=== PATIENT | male | born 1955 | race Caucasian/White ===

== ENCOUNTER 2018-01-29 08:06 | Day surgery (SDC) | payer BC ==
[2018-01-27 11:45] VITALS: BMI 24.3
[2018-01-29] MEDS ORDERED: BUPIVACAINE HCL/PF 2.5 MG/ML - 30 ML VIAL IJ ONE (09:48)
[2018-01-29] MEDS ORDERED: PROPOFOL 20 ML ONE (10:02)
[2018-01-29] MEDS ORDERED: DEXAMETHASONE SOD PHOSPHATE 4 MG/1 ML VIAL ONE (10:03)
[2018-01-29] MEDS ORDERED: ceFAZolin SODIUM 1 GM VIAL ONE (10:03)
[2018-01-29] MEDS ORDERED: ONDANSETRON 4 MG/2 ML VIAL ONE (10:03)
[2018-01-29] MEDS ORDERED: LIDOCAINE HCL/PF 2% SDV 5ML VIAL ONE (10:03)
[2018-01-29] MEDS ORDERED: KETOROLAC TROMETHAMINE 30 MG/1 ML VIAL ONE (10:03)
[2018-01-29] MEDS ORDERED: BUPIVACAINE HCL/PF 0.25% (2.5MG/ML) 10 ML VIAL IJ ONE (10:29)
[2018-01-29] MEDS ORDERED: oxyCODONE HCL 5 MG TABLET PO PRN ×2 (11:04)
[2018-01-29] MEDS ORDERED: ONDANSETRON 4 MG/2 ML VIAL IVPUSH PRN (11:04)
[2018-01-29] MEDS ORDERED: PROMETHAZINE HCL 25 MG/1 ML VIAL IVPUSH PRN (11:04)
[2018-01-29] MEDS ORDERED: LACTATED RINGERS SOLUTION 1,000 ML IV SCH (11:15)
[2018-01-29 12:41] VITALS: TEMP 97.5
[2018-01-29 13:20] VITALS: BP 120/74; PULSE 63
--- NOTE | 2018-02-01 15:14 | OP ---
DATE OF OPERATION: 01/29/2018 SURGEON: Mark Alexis MD [employer] SUPERVISOR: LONNIE Simon PREOPERATIVE DIAGNOSES: 1. Right knee medial and lateral meniscal tear. 2. Right knee cartilage injury. 3. Right knee synovitis. POSTOPERATIVE DIAGNOSIS: 1. Right knee medial and lateral meniscal tear. 2. Right knee cartilage injury. 3. Right knee synovitis. PROCEDURE: 1. Right knee arthroscopy with partial meniscectomy, medial and lateral meniscus. 2. Right knee arthroscopy with chondroplasty and abrasion arthroplasty. 3. Right knee arthroscopy with synovectomy. CPT CODES: 28296 FINDINGS: 1. Medial meniscus anterior horn tear. 2. Lateral meniscus anterior horn tear. 3. Synovitis notch area. 4. Large ligament with extrusion into the lateral joint line and associated tearing of the anterior horns. 5. . 6. ACL and PCL tibial plateau. 7. cartilage injury patellofemoral trochlea adhesions. PROCEDURE: Informed consent was obtained. The patient came to the operating room, where the lower extremity was prepped and draped in a sterile fashion. A tourniquet was placed on the upper thigh, but not inflated. Using standard arthroscopic technique, a lateral incision and portal was made to allow for introduction of the camera into the suprapatellar bursa. This was then taken to the medial joint line, where under direct visualization, a medial incision and portal was made. Excessive synovium noted in the medial, lateral and patellofemoral and notch area was removed by an upbiter, shaver and Bovie cautery. This was found to bring in inflammatory tissue into the joint surface, a source of pain and dysfunction. Probing of the medial and lateral meniscus found tears, as described in the findings. These were removed with the upbiter and shaver and taken back to a stable rim. Grade 2 to 3 degenerative changes were treated with a chondroplasty, removing all flaking surfaces with low-setting Bovie along the periphery to prevent further flaking. Grade 4 changes, as noted, were treated with an abrasoplasty, creating a bleeding surface at the bone/cartilage interface. Aggressive debridement with shaver/mirela created bleeding surface. Micro fracture also done when indicated in findings. All areas of the knee were once again reexamined. The knee was then drained and a single suture was placed in all portals. A sterile dressing was placed and the patient was transferred to the recovery room without complication. MARK ALEXIS M.D. [id number]
== END 2018-01-29 13:21 | disposition home or self-care (01) ==
LOC: FASU 08:06
PROVIDERS: ATTEND Orthopaedic Surgery
PROC: 0SBC4ZZ Excision of Right Knee Joint, Percutaneous Endoscopic Approach (ICD-10-PCS; 2018-01-29)
PROC: 0SBC4ZZ Excision of Right Knee Joint, Percutaneous Endoscopic Approach (ICD-10-PCS; 2018-01-29)
PROC: 0SBC4ZZ Excision of Right Knee Joint, Percutaneous Endoscopic Approach (ICD-10-PCS; principal; 2018-01-29 10:28)
DX: S83.241A Other tear of medial meniscus, current injury, right knee, initial encounter (principal); S83.281A Other tear of lateral meniscus, current injury, right knee, initial encounter; S83.8X1A Sprain of other specified parts of right knee, initial encounter; M65.861 Other synovitis and tenosynovitis, right lower leg; X58.XXXA Exposure to other specified factors, initial encounter; Y93.9 Activity, unspecified; Y92.9 Unspecified place or not applicable
CPT/HCPCS: 94760

== ENCOUNTER 2018-06-11 06:58 | Emergency (ER) | payer BC, OTHER ==
[2018-06-11 07:12] VITALS: TEMP 98.4; BMI 24.3
--- NOTE | 2018-06-11 07:27 | PDOC ---
History of Present Illness - General Chief Complaint: Chest Pain Stated Complaint: CHEST PAIN Time Seen by Provider: 06/11/18 07:23 History Source: Patient Exam Limitations: No Limitations - History of Present Illness Initial Comments: 06/11/18 07:29 62y M pmhx LBBB, chf (ef 40%), PE (2007, related to surgery on a/c for 6 months then d/cd) presents with chest pain that woke him out of sleep at 5:30. The chest pain is sharp, loalized to the left side, nonradiating, 4/10 and lasted under 1 min before resolving. The pt went back to sleep and it happened again, he took his BP and noticed it was elevated to 170s sbp and came for evaluation. PT states he is ccurrently pain free. Denies any prior history of pain. He has been asymptomatic until today. Pt doesnt run anymore but states he walks to keep in shape and to get his heart rate up. No recent fever/chills, n/v, cough, bah, pleurisy, not positional, palps, lightheadedness, cough, recent travel. +social etoh Cardiology: Tal Martins PMD: Pradip Past History - Past Medical History Allergies/Adverse Reactions: Allergies Allergy/AdvReac Type Severity Reaction Status Date / Time No Known Allergies Allergy Unverified 01/18/13 12:46 Home Medications: Ambulatory Orders Aspirin [Aspir 81] 81 mg PO AM 01/18/13 Icosapent Ethyl [Vascepa] 1 gm PO QID capsule 02/15/16 Lisinopril [Prinivil -] 40 mg PO DAILY 01/27/18 Testosterone Enanthate 0.5 ml IM WEEKLY 01/27/18 Carvedilol [Coreg -] 12.5 mg PO BID 06/11/18 Anemia: Yes (THALASEMIA) Asthma: No Cancer: No Cardiac Disorders: Yes (LEFT BBB, CARDIOMYOPATHY) CVA: No COPD: No CHF: No Dementia: No Diabetes: No GI Disorders: No Disorders: No HTN: Yes (DX 2015) Hypercholesterolemia: No Liver Disease: No Seizures: Yes (1986- GRAN MAL SEIZURE DURING SLEEP) Thyroid Disease: No - Surgical History Abdominal Surgery: Yes (OPEN A/P) Appendectomy: Yes (OPEN A/P- 1986) Cardiac Surgery: No Cholecystectomy: No Lung Surgery: No Neurologic Surgery: No Orthopedic Surgery: Yes (LEFT HIP RESURFACING-2005) - Suicide/Smoking/Psychosocial Hx Smoking History: Never smoked Have you smoked in the past 12 months: No Hx Alcohol Use: Yes (SOCIALLY) Drug/Substance Use Hx: No Substance Use Type: Alcohol Hx Substance Use Treatment: No Cardiac Specific PMH - Complaint Specific PMHX Pacemaker: No Review of Systems - Review of Systems Able to Perform ROS?: Yes Comments:: 06/11/18 08:01 Constitutional - no reported Fever, Chills, HEENT: no reported vision changes, sore throat Respiratory: no reported cough, sob, hemoptysis Cardiac: + chest pain, no reported palpitations, light headedness, leg swelling Abd/GI: no reported abd pain, nausea, vomiting, blood per rectum, melena, diarrhea : no reported dysuria, frequency, discharge Musculskelatal - no reported back pain, joint swelling skin - no reported bruising, erythema, rash neurological: no reported headache, numbness, focal weakness, tingling, ataxia, hematologic: no reported easy bruising, easy bleeding *Physical Exam - Vital Signs Last Vital Signs Temp Pulse Resp BP Pulse Ox 98.4 F 85 16 145/85 100 06/11/18 07:05 06/11/18 10:47 06/11/18 07:05 06/11/18 10:47 06/11/18 10:47 - Physical Exam Comments: 06/11/18 08:01 GENERAL: The patient is awake, alert, and fully oriented, Nontoxic - in no acute distress. HEAD: Normocephalic, atraumatic. EYES: extraocular movements intact, sclera anicteric, conjunctiva clear. ENT: Normal voice, Moist mucous membranes. NECK: Normal range of motion, supple LUNGS: Breath sounds equal, clear to auscultation bilaterally. No wheezes, no rhonchi, no rales. HEART: Regular rate and rhythm, normal S1 and S2 without murmur, rub or gallop. ABDOMEN: Soft, nontender, normoactive bowel sounds. No guarding, no rebound. . No CVA tenderness EXTREMITIES: Normal range of motion, no edema. NEUROLOGICAL: No facial assymetry, Normal speech, PSYCH: Normal mood, normal affect. SKIN: Warm, Dry, normal turgor, Heart Score/ECG Review - ECG Impressions Comment:: 06/11/18 08:03 Twelve-lead EKG was performed and reviewed by me. There is normal sinus rhythm with a rate of 53 The axis is normal. QRS interval of 118 LVH no prior ekg ofor comparison ED Treatment Course - LABORATORY CBC & Chemistry Diagram: 06/11/18 08:10 06/11/18 08:10 - ADDITIONAL ORDERS Additional order review: Laboratory Results 06/11/18 06/11/18 06/11/18 11:10 11:10 08:10 PT with INR 12.2 INR 1.09 Sodium Potassium Chloride Carbon Dioxide Anion Gap BUN Creatinine Creat Clearance w eGFR Random Glucose Calcium Total Bilirubin AST ALT Alkaline Phosphatase Creatine Kinase 83 Troponin I < 0.03 Total Protein Albumin 06/11/18 06/11/18 08:10 08:10 PT with INR INR Sodium 134 L Potassium 4.0 Chloride 103 Carbon Dioxide 27 Anion Gap 4 L BUN 16 Creatinine 0.7 Creat Clearance w eGFR > 60 Random Glucose 99 Calcium 9.2 Total Bilirubin 1.2 H AST 26 ALT 24 Alkaline Phosphatase 39 Creatine Kinase 87 Troponin I < 0.03 Total Protein 6.2 L Albumin 4.0 06/11/18 08:10 RBC 6.33 H MCV 65.2 L MCHC 32.2 RDW 14.7 MPV 8.1 Neutrophils % No Result Required. Lymphocytes % No Result Required. - RADIOLOGY Radiology Studies Ordered: Category Date Time Status CHEST PA & LAT [RAD] Stat Radiology 06/11/18 07:55 Completed - Medications Given in the ED: ED Medications Discontinued Medications Generic Name Dose Route Start Last Admin Trade Name Freq PRN Reason Stop Dose Admin Aspirin 162 mg 06/11/18 07:55 06/11/18 08:27 Asa - PO 06/11/18 07:56 162 mg ONCE ONE Administration Medical Decision Making - Medical Decision Making 06/11/18 08:03 62-year-old gentleman history of hypertension, cardiomyopathy with EF of 40%, history of provoked PE currently off before meals presenting with 2 episodes of brief sharp chest pain waking him up from sleep without associated diaphoresis, shortness of breath, dyspnea on exertion. Differential for the patient's symptoms includes possible ACS, pneumothorax, Considered possible PE however his symptoms not consistent. There also is atypical of ACS Will obtain blood work, troponins, EKG, chest x-ray aspirin We'll discuss with his environmental health safety engineer regarding disposition 06/11/18 12:09 Patient's lab work is unremarkable, the patient's asymptomatic no events on quality assurance monitor chassis. Attempted to call the patient's environmental health safety engineer, attended reach patient at the office was told that not in office today and was given her cell ([phone]) but I get a ringtone but goes to 'unalbe to complete call' after multiple tries. Attempted other numbers without any answers ([phone]). will discuss with dr. Moseley regarding disposition - anticipate outpatient fu with cardiology 06/11/18 12:[address] Moseley agree with our management and will fu with him as outpatient if 2ndtrop neg. 06/11/18 12:49 trop neg x 2 pt asypptomatic pt has cards appointment on 06/16 will dc with pmd and cardiology fu return precautions were discussed I discussed the physical exam findings, ancillary test results and final diagnoses with the patient. I answered all of the patient's questions. The patient was satisfied with the care received and felt comfortable with the discharge plan and treatment plan. The patient will call their primary care physician within 24 hours to arrange follow-up and will return to the Emergency Department with any new, persistent or worsening symptoms. *DC/Admit/Observation/Transfer Diagnosis at time of Disposition: Atypical chest pain - Discharge Dispostion Disposition: HOME Condition at time of disposition: Improved Decision to Admit order: No - Referrals Referrals: See Moseley MD [Primary Care Provider] - Tal Martins MD [Staff Physician] - - Patient Instructions Printed Discharge Instructions: DI for Atypical Chest Pain Additional Instructions: Return to the emergency department immediately with ANY new, persistent or worsening symptoms clearing any chest pain, shortness of breath, decreased exercise tolerance or other complaints. You MUST call and follow up with your doctor and environmental health safety engineer next week for further evaluation of your symptoms. Results were discussed with you. Please make sure your doctor reviews the results of your emergency evaluation. If you had any xrays during your visit, it was read preliminarily by myself, a Radiologist will review it and if there are any additional findings we will call you. - Post Discharge Activity
[2018-06-11] MEDS ORDERED: ASPIRIN 81 MG CHEWABLE TABLETS PO ONE (07:55)
[2018-06-11] MEDS ORDERED: ASPIRIN 81 MG CHEWABLE TABLETS ONE (08:32)
[2018-06-11 08:34] LABS: INR 1.09 (0.82-1.09); PROTHROMBIN TIME (PATIENT) 12.2 SEC (10.2-13.0)
[2018-06-11 08:39] LABS: HEMATOCRIT 41.3 % (35.4-49); HEMOGLOBIN 13.3 GM/dl (11.7-16.9); MCHC 32.2 g/dl (32.0-35.9); MEAN CELL VOLUME 65.2 fl (80-96); MEAN PLT VOLUME 8.1 fl (7.5-11.1); PLATELET COUNT 201 K/MM3 (134-434); RBC 6.33 M/mm3 (4.00-5.60); RDW 14.7 % (11.9-15.9)
[2018-06-11 08:40] LABS: ADD RBC MORPHOLOGY YES
[2018-06-11 08:41] LABS: ALK PHOS 39 U/L (32-92); ANION GAP 4 (8-16); BILIRUBIN,TOTAL 1.2 mg/dl (0.2-1.0); BLOOD UREA NITROGEN 16 mg/dl (7-18); CALCIUM 9.2 mg/dl (8.4-10.2); CHLORIDE 103 mmol/L (98-107); CO2 27 mmol/L (22-28); CREATININE 0.7 mg/dl (0.6-1.3); GLUCOSE,RANDOM 99 mg/dl (74-106); SGOT/AST 26 U/L (10-42); SGPT/ALT 24 U/L (10-40); SODIUM 134 mmol/L (136-145); TOT PROT 6.2 g/dl (6.4-8.3)
[2018-06-11 09:46] LABS: PLATELET ESTIMATE ADEQUATE
[2018-06-11 10:49] VITALS: BP 145/85; PULSE 85
--- NOTE | 2018-06-14 10:51 | EKG ---
Test Reason : Blood Pressure : / mmHG Vent. Rate : 053 BPM Atrial Rate : 053 BPM P-R Int : 202 ms QRS Dur : 118 ms QT Int : 436 ms P-R-T Axes : 058 027 069 degrees QTc Int : 409 ms SINUS BRADYCARDIA LEFT VENTRICULAR HYPERTROPHY WITH QRS WIDENING ABNORMAL ECG NO PREVIOUS ECGS AVAILABLE Confirmed by CARLIE HAMMER, VERA ([id number]) on 06/14/2018 10:51:00 AM Referred By: LORELEI Confirmed By:VERA SEXTON MD
== END 2018-06-11 12:59 | disposition home or self-care (01) ==
LOC: FER 06:58
DX: R07.89 Other chest pain (principal); Z86.711 Personal history of pulmonary embolism; I44.7 Left bundle-branch block, unspecified; I10 Essential (primary) hypertension
CPT/HCPCS: 36415; 71046-TC-FY; 80053; 82550; 84484; 85025; 85610; 93005; 99283-25

== ENCOUNTER 2021-04-10 20:27 | Emergency (ER) | payer OTHER, BC ==
[2021-04-10 21:00] VITALS: BP 125/70; PULSE 68; TEMP 100; BMI 24.3
[2021-04-10 22:04] LABS: BASO % 0.2 % (0-2.0); EOS % 0.8 % (0-4.5); HEMATOCRIT 34.7 % (35.4-49); HEMOGLOBIN 11.2 GM/dl (11.7-16.9); LYMPH % 7.5 % (8-40); MCH 20.6 pg (25.7-33.7); MCHC 32.3 g/dl (32.0-35.9); MEAN CELL VOLUME 63.8 fl (80-96); MEAN PLT VOLUME 7.6 fl (7.5-11.1); MONO % 7.1 % (3.8-10.2); NEUT % 84.4 % (42.8-82.8); PLATELET COUNT 267 K/MM3 (134-434); RBC 5.43 M/mm3 (4.00-5.60); RDW 15.2 % (11.9-15.9); WHITE BLOOD COUNT 10.1 K/mm3 (4.0-10.8)
[2021-04-10 22:07] LABS: ADD RBC MORPHOLOGY YES
[2021-04-10 22:23] LABS: ANISOCYTOSIS 1+; PLATELET ESTIMATE ADEQUATE
[2021-04-10 22:25] LABS: ALBUMIN 3.9 g/dl (3.4-5.0); BILIRUBIN,TOTAL 0.7 mg/dl (0.2-1); CALCIUM 9.7 mg/dl (8.5-10); CREATININE 0.8 mg/dl (0.55-1.3); TOT PROT 6.6 g/dl (6.4-8.2)
[2021-04-10] MEDS ORDERED: CIPROFLOXACIN 500 MG TABLET (RESTRICTED TO ID) PO ONE (23:26)
[2021-04-10] MEDS ORDERED: PHENAZOPYRIDINE HCL 100 MG TABLET (FP) PO ONE (23:27)
[2021-04-10] MEDS ORDERED: CIPROFLOXACIN 250 MG TABLET (RESTRICTED TO ID) PO ONE (23:28)
[2021-04-10] MEDS ORDERED: PHENAZOPYRIDINE HCL 100 MG TABLET (FP) ONE (23:28)
== END 2021-04-10 23:41 | disposition home or self-care (01) ==
LOC: FER 20:27
DX: N39.0 Urinary tract infection, site not specified (principal)
CPT/HCPCS: 36415; 80053; 81003; 81015; 85025; 87040; 87086; 87186; 99283-25

== ENCOUNTER 2024-08-07 11:48 | Emergency (ER) | payer OTHER, BC ==
[2024-08-07 12:23] VITALS: BP 130/66; PULSE 55; RESP 18; TEMP 98.1; BMI 23.6
[2024-08-07 13:57] LABS: HEMATOCRIT 40.4 % (35.4-49); HEMOGLOBIN 12.8 G/dL (11.7-16.9); MCHC 31.7 g/dl (32.0-35.9); MEAN CELL VOLUME 66.1 fl (80-96); MEAN PLT VOLUME 8.6 fl (7.5-11.1); PLATELET COUNT 265.5 10^3/uL (134-434); RBC 6.11 10^6/uL (4.00-5.60); RDW 20.5 % (11.9-15.9); WHITE BLOOD COUNT 3.9 10^3/uL (4.0-10.8)
[2024-08-07 14:20] LABS: ALBUMIN 4.4 g/dl (3.4-5.0); ALK PHOS 45 U/L (45-117); ANION GAP 7 mmol/L (4-13); BILIRUBIN,TOTAL 0.7 mg/dl (0.2-1); CALCIUM 10.4 mg/dl (8.5-10.1); CHLORIDE 98 mmol/L (98-107); CO2 29 mmol/L (21-32); CREATININE 0.8 mg/dl (0.6-1.3); GLUCOSE,RANDOM 99 mg/dl (74-106); POTASSIUM 4.7 mmol/L (3.5-5.1); SGOT/AST 26 U/L (15-37); SGPT/ALT 22 U/L (7-52); SODIUM 134 mmol/L (136-145); TOT PROT 6.7 g/dl (6.4-8.2)
[2024-08-07 14:21] LABS: PLATELET ESTIMATE ADEQUATE
== END 2024-08-07 16:29 | disposition home or self-care (01) ==
LOC: FER 11:48
DX: R10.31 Right lower quadrant pain (principal); R53.81 Other malaise; R30.0 Dysuria
CPT/HCPCS: 36415; 74177-TC; 80053; 81003; 83735; 85027; 87086; 99285-25; Q9967